=== PATIENT | male | born 1950 | race Caucasian/White ===

== ENCOUNTER 2023-05-13 20:48 | Outpatient (CLI) | payer OTHER, SELFPAY | END 2023-05-13 20:49 | disposition home or self-care (01) | LOC: SLEEP 20:53 | PROVIDERS: PCP Family Medicine; Visit Provider Internal Medicine | DX: G47.33 Obstructive sleep apnea (adult) (pediatric) (principal) | CPT/HCPCS: 95811 ==

== ENCOUNTER 2024-01-12 17:32 | Emergency (ER) | payer OTHER, SELFPAY ==
[2024-01-12 17:54] VITALS: BP 136/63; PULSE 71; RESP 20; TEMP 35.7; O2SAT 93; BMI 30.1
--- NOTE | 2024-01-12 19:35 | ED.WOUNDLAC ---
HPI - Wound/Laceration General Date Seen: 01/12/24 Chief Complaint: Laceration/Wound Stated Complaint: Cut Left hand Time Seen by Provider: 01/12/24 18:59 Source: patient Mode of arrival: ambulatory Limitations: no limitations History of Present Illness HPI narrative: Patient is a 73-year-old male presenting to emergency department for laceration to the dorsal aspect of his left 5th digit. He was using a pruning luisa when it slipped and cut his finger at the base. This happened shortly prior to arrival. Initially had a lot of bleeding that has since stopped. Denies weakness or numbness. States he has full range of motion to that finger. No other injuries noted. Tetanus shot was in 2022. Related Data Home Medications ?Medication ?Instructions ?Recorded ?Confirmed ezetimibe 10 mg tablet 10 mg PO DAILY 01/12/24 01/12/24 rosuvastatin 10 mg tablet 10 mg PO QPM 01/12/24 01/12/24 Allergies Allergy/AdvReac Type Severity Reaction Status Date / Time No Known Drug Allergies Allergy Verified 01/12/24 17:57 Review of Systems Narrative: Pertinent systems reviewed and were negative unless stated in HPI Exam Narrative: Exam Narrative: Const: Well-nourished, Well-developed, in mild distress Eyes: PERRL, no conjunctival injection, and symmetrical lids HENT: Atraumatic external nose and ears. Moist mucous membranes. MSK:Extremities w/o deformity, Normal Active ROM Skin: Warm, Dry. 1 cm laceration dorsal aspect of the most proximal portion of left 5th digit Neuro: Normal Muscle tone, No focal neurological deficits. Psych: Awake, Alert, & Oriented x3. Appropriate mood and affect. Const: Vital Signs, click to edit/add: Vital Signs - 24 hr 01/12/24 17:54 Temperature 96.3 F L Pulse Rate [Pulse Oximeter] 71 Respiratory Rate 20 Blood Pressure [Ri ght Upper Arm] 136/63 Pulse Oximetry 93 Oxygen Delivery Me thod Room Air Course Vital Signs Vital signs: Initial Vital Signs Temperature 96.3 F L 01/12/24 17:54 Temperature Source Temporal Artery Scan 01/12/24 17:54 Pulse Rate 71 01/12/24 17:54 Respiratory Rate 20 01/12/24 17:54 Blood Pressure 136/63 01/12/24 17:54 Blood Pressure Mean 87 01/12/24 17:54 Blood Pressure Position Sitting 01/12/24 17:54 Pulse Oximetry 93 01/12/24 17:54 Oxygen Delivery Method Room Air 01/12/24 17:54 Vital Signs Temperature 96.3 F L 01/12/24 17:54 Pulse Rate 71 01/12/24 17:54 Respiratory Rate 20 01/12/24 17:54 Blood Pressure 136/63 01/12/24 17:54 Pulse Oximetry 93 01/12/24 17:54 Oxygen Delivery Method Room Air 01/12/24 17:54 Temperature 96.3 F L 01/12/24 17:54 Pulse Rate 71 01/12/24 17:54 Respiratory Rate 20 01/12/24 17:54 Blood Pressure 136/63 01/12/24 17:54 Pulse Oximetry 93 01/12/24 17:54 Oxygen Delivery Method Room Air 01/12/24 17:54 MDM - Wound/Laceration MDM Narrative Medical decision making narrative: Patient 73-year-old male presenting for laceration to the dorsal aspect of his left 5th finger near the base. No other injuries noted. Has full range of motion of the finger and I do not see any deep structure injury. Do not believe imaging is necessary at this time. The wound was clean and 4 sutures were placed. He is doing well at this time do not believe antibiotics are necessary. Will follow-up with primary care provider to have sutures removed. Discharge Plan Discharge Clinical Impression: Laceration Patient Disposition: Home, Self-Care Condition: Stable Instructions: Finger Laceration (ED) Additional Instructions: Follow-up with your primary care provider or urgent care in the next 7 days to have the for sutures removed. For next 6 months, once sutures are removed, whenever you go outside put a dab of sunscreen over the laceration site to improve scar appearance. Topical antibiotics are not necessary at this time. Patient can shower but do not submerge the laceration until sutures are removed You may notice some erythema around the laceration tomorrow but if you notice that that keeps expanding or have severe pain to the area return immediately for re-evaluation. Prescriptions: No Action ezetimibe 10 mg tablet 10 mg PO DAILY rosuvastatin 10 mg tablet 10 mg PO QPM Follow Up/Referrals: Andrea Neely MD [Primary Care Provider] - Stand Alone Forms: [facility] Info Instructions Procedures Laceration Left 5th digit: Name of person performing procedure: Aroldo Carroll Site: hand (5th finger) Side (If applicable): left Size (cm): 1 Description: linear and clean Depth: simple, single layer Local Anesthetic: lidocaine 1% Amount of anesthesia used (mL): 3 Pre-repair: wound explored, irrigated extensively and deep structures intact Skin layer closed with: nylon Size (cm): 4-0 Number of sutures: 4 Technique: simple, interrupted
== END 2024-01-12 19:51 | disposition home or self-care (01) ==
PROVIDERS: Emergency Provider Student in an Organized Health Care Education/Training Program; PCP Family Medicine
DX: S61.217A Laceration without foreign body of left little finger without damage to nail, initial encounter (principal); W27.2XXA Contact with scissors, initial encounter
CPT/HCPCS: 12001; 99282; 99283